=== PATIENT | female | born 1980 | race Caucasian/White ===

== ENCOUNTER 2020-12-03 19:27 | Emergency (ER) | payer OTHER ==
[~2020-12-03] VITALS: Ht 162.6 cm; Wt 97.2 kg
[2020-12-03 20:22] LABS: BASO % 1 % (0-3); EOS # 0.1 x10^3/uL (0.0-0.7); EOS % 2 % (0-3); HEMATOCRIT 38.9 % (36.0-47.0); HEMOGLOBIN 13.3 g/dL (12.0-15.5); LYMPH # 1.5 x10^3/uL (1.0-4.8); LYMPH % 33 % (24-48); MEAN CORPUSCULAR HEMOGLOBIN 30 pg (25-35); MEAN CORPUSCULAR HGB CONC 34 g/dL (31-37); MEAN CORPUSCULAR VOLUME 87 fL (79-100); MONO # 0.4 x10^3/uL (0.0-1.1); MONO % 9 % (0-9); NEUT # 2.6 x10^3uL (1.8-7.7); NEUT % 56 % (31-73); PLATELET COUNT 293 x10^3/uL (140-400); RED BLOOD COUNT 4.48 x10^6/uL (3.50-5.40); RED CELL DISTRIBUTION WIDTH 14.2 % (11.5-14.5); WHITE BLOOD COUNT 4.6 x10^3/uL (4.0-11.0)
--- NOTE | 2020-12-03 20:37 | PHYS DOC ---
Past History Past Surgical History: (BAM GRANADOS APRN) Adult General Chief Complaint Chief Complaint: CHEST PAIN HPI HPI Patient is a 39-year-old female presents emergency department chief complaint of heart palpitations that started last night, patient states she woke up the next morning did not notice any heart palpitations but noticed a slow onset of sternal chest pain started approximately 3 PM today. Patient reports she felt a little short of breath at onset, states the pain is currently a 6 out of 10, describes pain as a pressure type feeling. Does not radiate. Denies diaphoretic episodes, reports some nausea however denies vomiting diarrhea abdominal pains. Patient denies chest or nasal congestion. Patient denies dizziness, syncopal episodes, headaches, fever chills, or visual disturbances. Patient reports she is recently moved to the area and has been experiencing more stress than normal. Patient denies homicidal or suicidal ideations. Denies allergies to medications, reports taking Synthroid for hypothyroidism, reports her primary care physician is at the ambulance to the hospital. Patient denies any other physical complaints or physical concerns. (BAM GRANADOS APRN) Review of Systems Review of Systems 14 body systems of review of systems have been reviewed. See HPI for pertinent positives and negative responses, otherwise all other systems are negative, nonpertinent or noncontributory. Constitutional: Negative except as outlined in HPI above. Skin: Negative except as outlined in HPI above. Eyes: Negative except as outlined in HPI above. HENT: Negative except as outlined in HPI above. Respiratory: Negative except as outlined in HPI above. Cardiovascular: Negative except as outlined in HPI above. GI: Negative except as outlined in HPI above. : Negative except as outlined in HPI above. Musculoskeletal: Negative except as outlined in HPI above. Integument: Negative except as outlined in HPI above. Neurologic: Negative except as outlined in HPI above. Endocrine: Negative except as outlined in HPI above. Lymphatic: Negative except as outlined in HPI above. Psychiatric: Negative except as outlined in HPI above. (BAM GRANADOS APRN) Current Medications Current Medications Current Medications Medications (Trade) Dose Ordered Sig/Letha Start Time Stop Time Status Last Admin Dose Admin Aspirin (Aspirin Chewable) 324 mg 1X ONCE 12/03/20 20:45 12/03/20 20:46 UNV (BAM GRANADOS APRN) Physical Exam Physical Exam Constitutional: Well developed, well nourished, no acute distress, non-toxic appearance. 39-year-old female in no apparent distress. HENT: Normocephalic, atraumatic. Eyes: Conjunctiva normal, no discharge. Neck: Normal range of motion, no stridor. Cardiovascular: No cyanosis appreciated, distal cap refill less than 2 seconds. Regular rate and rhythm, heart sounds S1-S2, PMI to the left. Lungs & Thorax: Patient is in no respiratory distress, no audible adventitious lung sounds appreciated. Lung sounds clear to auscultate all lung wasserman, no pain to palpation of the anterior thorax. No crepitus, no subcu air appreciated. Abdomen: Nontender, no abnormalities noted. Skin: Warm, dry, no erythema, no rash. Back: No tenderness, no deformities. Extremities: No tenderness, no cyanosis, no clubbing, ROM intact, no edema. Neurologic: Alert and oriented X 3, normal motor function, normal sensory function, no focal deficits noted. Psychologic: Affect normal, judgement normal, mood normal. (BAM GRANADOS APRN) Current Patient Data Vital Signs Vital Signs Date Time Temp Pulse Resp B/P (MAP) Pulse Ox O2 Delivery O2 Flow Rate FiO2 12/03/20 20:17 98.4 77 19 138/94 (109) 100 Room Air Lab Results Laboratory Tests Test 12/03/20 19:45 12/03/20 20:33 White Blood Count 4.6 x10^3/uL (4.0-11.0) Red Blood Count 4.48 x10^6/uL (3.50-5.40) Hemoglobin 13.3 g/dL (12.0-15.5) Hematocrit 38.9 % (36.0-47.0) Mean Corpuscular Volume 87 fL (79-100) Mean Corpuscular Hemoglobin 30 pg (25-35) Mean Corpuscular Hemoglobin Concent 34 g/dL (31-37) Red Cell Distribution Width 14.2 % (11.5-14.5) Platelet Count 293 x10^3/uL (140-400) Neutrophils (%) (Auto) 56 % (31-73) Lymphocytes (%) (Auto) 33 % (24-48) Monocytes (%) (Auto) 9 % (0-9) Eosinophils (%) (Auto) 2 % (0-3) Basophils (%) (Auto) 1 % (0-3) Neutrophils # (Auto) 2.6 x10^3uL (1.8-7.7) Lymphocytes # (Auto) 1.5 x10^3/uL (1.0-4.8) Monocytes # (Auto) 0.4 x10^3/uL (0.0-1.1) Eosinophils # (Auto) 0.1 x10^3/uL (0.0-0.7) Basophils # (Auto) 0.0 x10^3/uL (0.0-0.2) Troponin I Quantitative < 0.017 ng/mL (0-0.055) POC Urine HCG, Qualitative hcg negative (Negative) (BAM GRANADOS APRN) EKG EKG EKG performed at 1929 by ED nursing staff shows a normal sinus rhythm without ectopy, heart rate 74 bpm, NC interval 0.160, QTc interval 0.402, no acute STEMI, no ACS, no acute ischemia appreciated, EKG interpreted by ED attending physician Dr. Marlow. (BAM GRANADOS APRN) Radiology/Procedures Radiology/Procedures PATIENT: CODI DALTON LACCOUNT: [id number] : 1980 LOCATION: ER AGE: 39 SEX: F EXAM STATUS: PRE ER ORD. PHYSICIAN: BAM GRANADOS APRN REASON: Chest pain PROCEDURE: PORTABLE CHEST 1V EXAMINATION: Chest radiograph. VIEWS: Single view COMPARISON: None INDICATION:39 years, Female, chest pain. FINDINGS: Normal cardiomediastinal silhouette. No focal consolidation. No pleural effusion or pneumothorax. No acute osseous process. IMPRESSION: No acute cardiopulmonary process. Electronically signed by: Nina Stewart MD (12/03/2020 9:18 PM) [facility] (BAM GRANADOS APRN) Heart Score C/O Chest Pain: Yes HEART Score for Chest Pain: HEART Score for Chest Pain Response (Comments) Value History Slighlty/Non-Suspicious 0 ECG Normal 0 Age < 45 0 Risk Factors No Risk Factors 0 Troponin < Normal Limit 0 Total 0 Risk Factors: Risk Factors: DM, Current or recent (<one month) smoker, HTN, HLP, family history of CAD, obesity. Risk Scores: Risk Factors: DM, Current or recent (<one month) smoker, HTN, HLP, family history of CAD, obesity. (BAM GRANADOS APRN) Course & Med Decision Making Course & Med Decision Making Pertinent Labs and Imaging studies reviewed. (See chart for details) 39-year-old female, vital signs reviewed, presents emergency department complaint of sternal chest pain. Physical examination concerning for cardiorespiratory process however there may be an anxiety component. Ca rdiorespiratory work-up was initiated in the ED. The patient's urine was not infected, patient's CBC CMP cardiac work-up were n egative for concerning findings. Patient's EKG was nonconcerning. Upon reevaluation of the patient, patient reports her chest pains have resolved. Is no longer experiencing chest pain or shortness of breath. Patient is currently hemodynamically stable and nontoxic in appearance. Discussed with patient will give 1 mg of Ativan for current stress and anxiety problems. Discussed with patient strict follow-up with primary care this week, strict return to ER precautions for reoccurring chest pain or shortness of breath, patient is amenable to ED discharge planning. Discussed with the patient all findings and diagnostic testing as well as the need to follow-up with their primary care provider for further evaluation and treatment or return to the ED if any new or worsening symptoms. Strict return precautions were also discussed at length, the patient voiced understanding and agreement with the discharge planning. The patient was nontoxic in appearance, in no apparent distress, and hemodynamically stable at the time of disposition. (BAM GRANADOS APRN) Dragon Disclaimer Dragon Disclaimer This electronic medical record was generated, in whole or in part, using a voice recognition dictation system. (BAM GRANADOS APRN) Departure Departure: Impression: Primary Impression: Chest pain of unknown etiology Disposition: HOME / SELF CARE / HOMELESS Condition: GOOD Referrals: PCP,UNKNOWN (PCP) Patient Instructions: Chest Pain (Nonspecific) Additional Instructions: You were seen today in the emergency department for chest chest pain. An extensive cardiorespiratory work-up was done today in the emergency department. There were no concerning findings on your EKG, your chest x-ray, or your lab work. This is reassuring that it is not your heart or your lungs or an infecti ous process that is causing this pain. However there are many causes for chest pains. As we discussed at length, please follow-up with your primary care physician for ongoing evaluation of your chest pains. Please return to the emergency department immediately for worsening symptoms or other concerns. Thank you for visiting our Emergency Department. It was a pleasure taking care of you today in the emergency department and we appreciate you trusting us with your care. If any additional problems come up don't hesitate to return to visit us. Please follow up with your primary care provider so they can plan additional care if needed and know about the problem that you had. If symptoms worsen come back to the Emergency Department. Any concerning symptoms that start such as chest pain, shortness of air, weakness or numbness on one side of the body, running high fevers or any other concerning symptoms return to the ER. EMERGENCY DEPARTMENT GENERAL DISCHARGE INSTRUCTIONS Thank you for coming to [facility] (ED) today and trusting us with you care. We trust that you had a positivie experience in our Emergency Department. If you wish to speak to the department management, you may call the director at [phone]. YOUR FOLLOW UP INSTRUCTIONS ARE FOLLOWS: 1. Do you have a private Doctor? If you do not have a private doctor, please ask for a resource list of physicians or clinics that may be able to assist you with follow up care. 2. The Emergency Physician has interpreted your x-rays. The X-Ray specialist will also review them. If there is a change in the findings, you will be notified in 48 hours when at all possible. 3. A lab test or culture has been done, your results will be reviewed and you will be notified if you need a change in treatment. ADDITIONAL INSTRUCTIONS AND INFORMATION: 1. Your care today has been supervised by a physician who is specially trained in emergency care. Many problems require more than one evaluation for a complete diagnosis and treatment. We recommend that you schedule your follow up appointment as recommended to ensure complete treatment of you illness or injury. If you are unable to obtain follow up care and continue to have a problem, or if your condition worsens, we recommend that you return to the ED. 2. We are not able to safely determine your condition over the phone nor are we able to give sound medical advice over the phone. For these safety reasons, if you call for medical advice we will ask you to come to the ED for further evaluation. 3. If you have any questions regarding these discharge instructions please call the ED at [phone]. SAFETY INFORMATION: In the interest of safety, wellness, and injury prevention; we encourage you to wear your sealbelt, if you smoke; quite smoking, and we encourage family to use a protective helmet for bicycling and other sporting events that present an increased risk for head injury. IF YOUR SYMPTOMS WORSEN OR NEW SYMPTOMS DEVELOP, OR YOU HAVE CONCERNS ABOUT YOUR CONDITION; OR IF YOUR CONDITION WORSENS WHILE YOU ARE WAITING FOR YOUR FOLLOW UP APPOINTMENT; EITHER CONTACT YOUR PRIMARY CARE DOCTOR, THE PHYSICIAN WHOSE NAME AND NUMBER YOU WERE GIVEN, OR RETURN TO THE ED IMMEDIATELY. Attending Signature Attending Signature I have participated in the care of this patient and I have reviewed and agree with all pertinent clinical information above including history, exam, and recommendations. (YISEL MARLOW MD) BAM GRANADOS APRN Dec 03, 2020 20:37 YISEL MARLOW MD Dec 07, 2020 08:41
[2020-12-03 20:46] LABS: BACTERIA,URINE FEW /HPF (0-FEW); BILIRUBIN,URINE NEG (NEG); CLARITY,URINE HAZY; COLOR,URINE STRAW; GLUCOSE,URINE NEG (NEG); NITRITE,URINE NEG (NEG); RBC,URINE OCC /HPF (0-2); SQUAMOUS EPITHELIAL CELL,UR FEW /LPF; UROBILINOGEN,URINE 0.2 mg/dL (0.2 mg/dL)
[2020-12-03] MEDS: ASPIRIN CHEWABLE 81 MG TABLET. PO ONE (20:47)
[2020-12-03 21:03] LABS: CALCIUM 8.6 mg/dL (8.5-10.1); CREATININE 0.7 mg/dL (0.6-1.0); GFR 92.7; POTASSIUM 3.9 mmol/L (3.5-5.1)
--- NOTE | 2020-12-03 21:20 | RAD ---
EXAMINATION: Chest radiograph. VIEWS: Single view COMPARISON: None INDICATION:39 years, Female, chest pain. FINDINGS: Normal cardiomediastinal silhouette. No focal consolidation. No pleural effusion or pneumothorax. No acute osseous process. IMPRESSION: No acute cardiopulmonary process. Electronically signed by: Nina Stewart MD (12/03/2020 9:18 PM) [facility]
[2020-12-03 21:21] LABS: ALBUMIN 3.8 g/dL (3.4-5.0); ALBUMIN/GLOBULIN RATIO 1.1 (1.0-1.7); TOTAL BILIRUBIN 0.6 mg/dL (0.2-1.0); TOTAL PROTEIN 7.2 g/dL (6.4-8.2)
[2020-12-03 21:45] VITALS: BP 135/80
[2020-12-03] MEDS: LORazepam 1 MG TABLET PO ONE (22:13)
--- NOTE | 2020-12-04 00:40 | EKG ---
[address] [address] Test Date: 2020-12-03 Test Time: 19:29:35 Pat Name: CODI DALTON Department: Room: Gender: F Claims Account Specialist: DAVION : 1980 Requested By: BAM GRANADOS Order Number: [id number] Reading MD: Measurements Intervals [place] Rate: 74 P: 26 [place]: 160 QRS: -15 QRSD: 96 T: 21 QT: 362 QTc: 402 Interpretive Statements SINUS RHYTHM LEFTWARD AXIS OTHERWISE NORMAL ECG RI6.02 No previous ECG available for comparison
== END 2020-12-03 22:00 | disposition home or self-care (01) ==
LOC: ER 19:27
DX: R07.89 Other chest pain (principal)
CPT/HCPCS: 36415; 71045; 80053; 81001; 81025; 82553; 83690; 83880; 84484; 85025; 85379; 87086; 93005; 99285-25

== ENCOUNTER 2021-03-30 01:15 | Emergency (ER) | payer OTHER ==
[~2021-03-30] VITALS: Ht 162.6 cm; Wt 95.5 kg
--- NOTE | 2021-03-30 02:09 | PHYS DOC ---
Past History Past Surgical History: Alcohol Use: None General Adult EDM: Chief Complaint: ABDOMINAL PAIN HPI: HPI: Patient is a 40-year-old female coming in for right upper quadrant abdominal pain that started about 10 hours prior to arrival. Patient states her last p.o. intake was about 2 hours prior and it was not chills. States she has had a couple episodes of vomiting, tried to take MiraLAX but threw it up. Last bowel movement yesterday. Patient states she has a history of constipation. Is a pain started in the front and radiates to the back and is sharp in nature. She always has some pain but it gets intermittently better than worse. Took some Tylenol with some improvement and fell asleep but then woke up with the pain being severe again. Family history of gallbladder problems. Denies any changes with urination Review of Systems: Review of Systems: All other systems within normal limits except for as noted in the HPI Allergies: Allergies: Allergies Coded Allergies Type Severity Reaction Last Updated Verified No Known Drug Allergies 12/03/20 No Physical Exam: PE: Constitutional: Well developed, well nourished, no acute distress, non-toxic appearance. [] HENT: Normocephalic, atraumatic, bilateral external ears normal, nose normal. [] Eyes: PERRLA, conjunctiva normal, no discharge. [] Neck: No rigidity, supple, no stridor. [] Cardiovascular: Regular rate and rhythm, brisk cap refill [] Lungs & Thorax: Non labored symmetric respirations, no tachypnea or respiratory distress [] Abdomen: Soft, nondistended, positive Moraes sign. Skin: Warm, dry, no erythema, no rash. [] Back: Unremarkable Extremities: No deformities, range of motion grossly intact, no lower extremity edema [] Neurologic: Alert and oriented X 3, no focal deficits noted. [] Psychologic: Affect normal, judgement normal, mood normal. [] Current Patient Data: Labs: Laboratory Tests Test 03/30/21 01:47 POC Urine HCG, Qualitative hcg negative (Negative) Vital Signs: Vital Signs Date Time Temp Pulse Resp B/P (MAP) Pulse Ox O2 Delivery O2 Flow Rate FiO2 03/30/21 01:38 97.5 67 18 118/64 (82) 100 Room Air EKG: EKG: [] Radiology/Procedures: Radiology/Procedures: [address] [address] IMAGING REPORT Signed PATIENT: CODI DALTONOUNT: [id number] : 1980 LOCATION: ER AGE: 40 SEX: F EXAM STATUS: REG ER ORD. PHYSICIAN: ALFREDITO MENON MD REASON: RUQ pain, OMNI 300, 75ml PROCEDURE: CT ABD PELV W/ IV CONTRST ONLY CT abdomen and pelvis with contrast PQRS statement: CT scans at this facility use dose reduction including either automated exposure control, iterative reconstructions, and /or weight based radiation dosing via mA and kV modification when appropriate to reduce radiation dose to as low as reasonably achievable. Contrast: 75 mL Omnipaque 300 intravenous contrast. HISTORY: Right upper quadrant abdominal pain. Abdomen findings: Lower lumbar disc height loss and disc bulges. Lung bases are unremarkable. Small gallstones. Liver, pancreas, spleen, kidneys, adrenal glands are unremarkable. Appendix is negative. No obstruction or inflammation GI tract. No abdominal fluid or adenopathy. Pelvis findings: Indistinct hypodense foci margins of the left ovary measures 1.5 cm is likely follicles versus small cysts. Uterus, bladder, rectum and bones are unremarkable. No pelvic fluid or adenopathy. There is mild enlargement of the gonadal veins measuring up to 10 mm of the right ovarian vein. IMPRESSION: 1. No acute process. The appendix is negative. 2. Gallstones. 3. Enlargement of the ovarian veins with the right ovarian vein measuring 10 mm, could indicate valvular incompetence of the ovarian veins. There are no abnormal varices within the lower abdomen or pelvis evident. 4. Small round ovarian hypodensities measuring up to 1.5 cm most likely dominant follicles, or perhaps small cysts, which could be further assessed with pelvic sonography. Electronically signed by: Jagdish Reynoso MD (03/30/2021 2:58 AM) [facility] – [place] DICTATED AND SIGNED BY: JAGDISH REYNOSO MD DATE: 03/30/21 025 CC: ALFREDITO MENON MD; STEPHANIE SANTOS DO ~MTH0 0 [] Heart Score: C/O Chest Pain: No Risk Factors: Risk Factors: DM, Current or recent (<one month) smoker, HTN, HLP, family history of CAD, obesity. Risk Scores: Score 0 - 3: 2.5% MACE over next 6 weeks - Discharge Home Score 4 - 6: 20.3% MACE over next 6 weeks - Admit for Clinical Observation Score 7 - 10: 72.7% MACE over next 6 weeks - Early Invasive Strategies Course & Med Decision Making: Course & Med Decision Making Pertinent Labs and Imaging studies reviewed. (See chart for details) Pain quickly resolved with Bentyl. CT shows cholelithiasis without any gallbla dder wall thickening or pericholecystic fluid. Discussed follow-up and return precautions. [] Dragon Disclaimer: Dragon Disclaimer: This electronic medical record was generated, in whole or in part, using a voice recognition dictation system. Departure Departure: Impression: Primary Impression: Cholelithiasis Disposition: HOME / SELF CARE / HOMELESS Condition: IMPROVED Referrals: STEPHANIE SANTOS DO (PCP) Patient Instructions: Cholelithiasis Scripts Ondansetron (ONDANSETRON ODT) 4 Mg Tab.rapdis 1 TAB PO PRN Q6-8HRS PRN for NAUSEA, #16 TAB Prov: ALFREDITO MENON MD 03/30/21 Dicyclomine Hcl (DICYCLOMINE HCL) 20 Mg Tablet 1 TAB PO PRN Q6-8HRS PRN for PAIN for 10 Days, #30 TAB 1 Refill Prov: ALFREDITO MENON MD 03/30/21 ALFREDITO MENON MD Mar 30, 2021 02:09
[2021-03-30] MEDS ORDERED: CONTRAST GIVEN. MC PRN (02:15)
[2021-03-30] MEDS ORDERED: IOHEXOL 300 MG/ML 75 ML VIAL. IV ONE (02:15)
[2021-03-30] MEDS ORDERED: DICYCLOMINE 20 MG/2 ML VIAL. IM ONE (02:15)
[2021-03-30] MEDS ORDERED: ONDANSETRON PF 4 MG/2 ML VIAL. IVP ONE (02:15)
[2021-03-30 02:29] LABS: BACTERIA,URINE 0 /HPF (0-FEW); BILIRUBIN,URINE NEG (NEG); CLARITY,URINE CLEAR; COLOR,URINE YELLOW; GLUCOSE,URINE NEG (NEG); NITRITE,URINE NEG (NEG); RBC,URINE 0 /HPF (0-2); SQUAMOUS EPITHELIAL CELL,UR OCC /LPF; UROBILINOGEN,URINE 0.2 mg/dL (0.2 mg/dL); WBC,URINE OCC /HPF (0-4)
--- NOTE | 2021-03-30 03:00 | RAD ---
CT abdomen and pelvis with contrast PQRS statement: CT scans at this facility use dose reduction including either automated exposure cont rol, iterative reconstructions, and /or weight based radiation dosing via mA and kV modification when appropriate to reduce radiation dose to as low as reasonably achievable. Contrast: 75 mL Omnipaque 300 intravenous contrast. HISTORY: Right upper quadrant abdominal pain. Abdomen findings: Lower lumbar disc height loss and disc bulges. Lung bases are unremarkable. Small g allstones. Liver, pancreas, spleen, kidneys, adrenal glands are unremarkable. Appendix is negative. N o obstruction or inflammation GI tract. No abdominal fluid or adenopathy. Pelvis findings: Indistinct hypodense foci margins of the left ovary measures 1.5 cm is likely follic les versus small cysts. Uterus, bladder, rectum and bones are unremarkable. No pelvic fluid or adenop athy. There is mild enlargement of the gonadal veins measuring up to 10 mm of the right ovarian vein. IMPRESSION: 1. No acute process. The appendix is negative. 2. Gallstones. 3. Enlargement of the ovarian veins with the right ovarian vein measuring 10 mm, could indicate valvu lar incompetence of the ovarian veins. There are no abnormal varices within the lower abdomen or pelv is evident. 4. Small round ovarian hypodensities measuring up to 1.5 cm most likely dominant follicles, or perhap s small cysts, which could be further assessed with pelvic sonography. Electronically signed by: Andrea Reynoso MD (03/30/2021 2:58 AM) [facility]
[2021-03-30 03:47] LABS: CALCIUM 8.2 mg/dL (8.5-10.1); CREATININE 0.8 mg/dL (0.6-1.0); POTASSIUM 3.8 mmol/L (3.5-5.1)
[2021-03-30 03:51] LABS: ALBUMIN 3.6 g/dL (3.4-5.0); ALBUMIN/GLOBULIN RATIO 1.1 (1.0-1.7); TOTAL BILIRUBIN 0.4 mg/dL (0.2-1.0); TOTAL PROTEIN 6.8 g/dL (6.4-8.2)
[2021-03-30] MEDS ORDERED: DICY20TA PO (04:09)
[2021-03-30] MEDS ORDERED: ONDA4TAB12 PO (04:09)
[2021-03-30 04:18] VITALS: BP 114/61
== END 2021-03-30 04:22 | disposition home or self-care (01) ==
LOC: ER 01:15
DX: K80.20 Calculus of gallbladder without cholecystitis without obstruction (principal); Z98.890 Other specified postprocedural states
CPT/HCPCS: 36415; 74177; 80053; 81001; 81025; 83690; 96372; 96374; 99285; J0500; J2405; Q9967